=== PATIENT | male | born 1955 | race Caucasian/White ===

== ENCOUNTER → 2021-01-10 08:56 | Outpatient (BNVA) | payer OTHER, SELFPAY | PROVIDERS: Referring Provider Emergency Medicine Emergency Medical Services; Visit Provider Specialist | DX: M79.642 Pain in left hand (principal); M19.042 Primary osteoarthritis, left hand | CPT/HCPCS: 73130 ==

== ENCOUNTER 2021-08-28 14:12 | Outpatient (CLI) | payer OTHER, SELFPAY ==
--- NOTE | 2021-08-28 14:18 | USCV_ITS ---
Rashawn King Age: 66 Gender: M : 1955 Exam Date: 08/28/2021 14:55 Ordering Phys: Joseph Mohr DO Technologist: MACK Exam Location: [facility] [place] Indication: Lightheaded/screening Risk Factors: Previous Vascular Surgery: Right Brachial BP: / Left Brachial BP: / Right Left Velocity (cm/s) Spectral Plaque Velocity (cm/s) Spectral Plaque Syst/Diast Broadening Syst/Diast Broadening 75.00/ 23.20 Prox CCA 70.70 / 21.00 62.90/ 22.50 Mid CCA 70.70 / 20.20 62.10/ 22.50 Distal CCA 70.70 / 22.50 41.60/ 17.70 Prox ICA 56.90 / 18.00 41.20/ 16.70 Mid ICA 41.70 / 15.50 56.20/ 24.30 Distal ICA 43.30 / 19.80 73.20 ECA 77.70 0.89 ICA/CCA 0.80 Antegrade Vertebral Antegrade 26.40/ 8.80 cm/s 36.30/ 13.40 cm/s Tri Subclavian Tri 49.90 59.00 CONCLUSIONS Right ICA stenosis <50%. Moderate calcified atheromatous plaque right carotid bulb/ICA. Left ICA stenosis <50%. Mild atheromatous plaque left carotid bulb/ICA. Normal antegrade Doppler flow noted in the right vertebral artery. Normal antegrade Doppler flow noted in the left vertebral artery. Keenan Christine MD (Electronically Signed) Final Date: 28 Aug 2021 16:22 S
== END 2021-08-28 14:13 | disposition home or self-care (01) ==
LOC: RAD 14:14
PROVIDERS: Visit Provider Emergency Medicine Emergency Medical Services
DX: R42 Dizziness and giddiness (principal); I65.23 Occlusion and stenosis of bilateral carotid arteries
CPT/HCPCS: 93880

== ENCOUNTER 2022-07-22 15:37 | Outpatient (CLI) | payer OTHER, SELFPAY ==
--- NOTE | 2022-07-22 15:50 | CTR_ITS ---
PROCEDURE INFORMATION: Exam: CT Neck With Contrast Exam date and time: 07/22/2022 4:20 PM Age: 66 years old Clinical indication: Mass, lump, or swelling in neck; Right; Patient HX: RT side lump-bb since 1986; Additional info: Localized swelling, mass and lump, neck TECHNIQUE: Imaging protocol: Computed tomography of the neck with contrast. Sagittal and coronal reformatted images were created and reviewed. Radiation optimization: All CT scans at this facility use at least one of these dose optimization techniques: automated exposure control; mA and/or kV adjustment per patient size (includes targeted exams where dose is matched to clinical indication); or iterative reconstruction. Contrast material: OMNNI 350; Contrast volume: 95 ml; Contrast route: INTRAVENOUS (IV); REPORTING DATA: Count of CT and Cardiac NM exams in prior 12 months: This patient has received 0 known CTs and 0 known cardiac nuclear medicine studies in the 12 months prior to the current study. COMPARISON: No relevant prior studies available. RADIATION DOSE METRICS: Total DLP (mGy-cm): 159.75 FINDINGS: Mastoid air cells: Visualized mastoid air cells are clear. Paranasal sinuses: Large mucus retention cyst in the visualized right maxillary sinus. Other visualized paranasal sinuses are clear. Nasal cavity: Moderate right nasal septal deviation. Pharynx: Unremarkable. No significant tonsillar enlargement. Larynx: The larynx is unremarkable. The epiglottis is unremarkable. Prevertebral and retropharyngeal spaces: Unremarkable. Salivary glands: Soft tissue mass with mildly irregular margins in the posterior right parotid gland measuring 2.5 x 1.5 x 1.8 cm (series 13, image 64). There is an indistinct margin between superior portion of the mass and the underlying right sternocleidomastoid muscle (series 7, images 25-34). This corresponds to the clinical finding. The left parotid gland is unremarkable. The right and left submandibular glands are unremarkable. Thyroid: The thyroid gland is unremarkable. Lymph nodes: No lymphadenopathy. Trachea: The trachea is midline and patent. Lungs: Noncalcified nodule in the right upper lobe with an average measurement of 8 mm (series 5, image 92). Visualized lungs are clear. Bones/joints: Multilevel degenerative changes of varying severity in the visualized spine. No lytic or sclerotic bony lesions. Vasculature: Incidental note of a common origin of the left common carotid and brachiocephalic arteries. Mild atherosclerotic changes in the visualized arteries. Cervical vessels are patent. Soft tissues: No loculated fluid collections to suggest an abscess. CT/CT neck w con* [id number] IMPRESSION: 1. Soft tissue mass with mildly irregular margins in the posterior right parotid gland. There is an indistinct margin between superior portion of the mass and the underlying right sternocleidomastoid muscle. This corresponds to the clinical finding. Recommend clinical correlation. 2. Noncalcified nodule in the right upper lobe with an average measurement of 8 mm. For patients at low risk (minimal or absent history of smoking and of other known risk factors), recommend CT Chest at 3-6 months, then consider CT Chest at 18-24 months. For patients at high risk (history of smoking or of other known risk factors), recommend CT Chest at 3-6 months, then CT Chest at 18-24 months. (Reference: Dorothy) 3. Incidental/nonacute findings are listed in the report. REFERENCES: Dorothy H, et al. Guidelines for Management of Incidental Pulmonary Nodules Detected on CT Images: From the Fleischner Society 2017. Radiology. 2017;284(1):228-243.
[2022-07-22 16:18] LABS: Blood Urea Nitrogen 14 mg/dL (8-23)
[2022-07-22] MEDS: iohexol 350 mg/mL 500 mL Btl (per mL) IV (16:24)
== END 2022-07-22 15:38 | disposition home or self-care (01) ==
LOC: RAD 15:40
PROVIDERS: Visit Provider Specialist
DX: R91.1 Solitary pulmonary nodule (principal)
CPT/HCPCS: 70491; 82565; 84520; Q9967

== ENCOUNTER 2022-10-01 14:50 | Inpatient (IN) | payer OTHER, SELFPAY ==
[2022-09-30 11:58] VITALS: BMI 26.6
[2022-10-01] VITALS (31 sets, daily range): BP systolic 120–134; BP diastolic 74–98; PULSE 65–115; RESP 8–24; TEMP 36–36.3; O2SAT 88–100
--- NOTE | 2022-10-01 10:44 | ANES.PREANE2 ---
Pre-Anesthetic Assessment Height/Weight: Height 1.75 m Weight 81.647 kg Temp Pulse Resp BP Pulse Ox O2 Del Method 97.4 F L 70 16 129/98 97 Room Air 10/01/22 10:29 10/01/22 10:29 10/01/22 10:29 10/01/22 10:29 10/01/22 10:29 10/01/22 10:31 Operation Date: 10/01/22 11:50 Proposed Procedures p Right Parotidectomy, poss right neck dessection, Left abdominal fat graft [id number],R22.1(Right) - Noah Pérez MD s Neck Dissection(Right) - Noah Pérez MD s Skin Graft(Left) - Noah Pérez MD Familial anesthetic complications: None Was Beta Aurelio taken within 24 hours: N/A Was Clonidine taken within 24 hours: N/A Last intake: Intake Last Liquid Date 09/30/22 Last Liquid Time 20:00 Last Solid Date 09/30/22 Last Solid Time 20:00 Social No alcohol and No tobacco marijuana use Exam alert, oriented x 3, clear to auscultation bilaterally and regular rate & rhythm Airway Mallampati: Class II Dentition: full History/ROS No significant complaints Anesthetic Plan ASA status: 2 Anesthesia: General Risk of > 500 ml blood loss (7ml/kg in children): No Medications/Allergies Home Medications Medication Instructions Recorded Confirmed Last Taken Type fluoxetine 20 mg capsule (Prozac) 60 mg PO DAILY 01/10/21 09/30/22 09/30/22 History oxybutynin chloride 5 mg tablet 5 mg PO DIRECTED PRN Urinary 10/01/22 10/01/22 09/30/22 History Retention Allergies Allergy/AdvReac Type Severity Reaction Status Date / Time lisinopril Allergy Unknown Verified 09/30/22 11:52 [facility] Anesthesia Social History Smoking and tobacco status: never smoked Data Anesthesia Cardiac Studies: No Data to Display
--- NOTE | 2022-10-01 10:57 | W.PM.OPSUD ---
Surgery/Procedure H&P Update DATE OF PROCEDURE: October 01, 2022 DATE H&P PERFORMED: 09/16/22 PRIMARY INDICATION FOR PROCEDURE: Right parotid mass PLANNED PROCEDURE: Operation Date: 10/01/22 11:50 Proposed Procedures p Right Parotidectomy, poss right neck dessection, Left abdominal fat graft [id number],R22.1(Right) - Noah Pérez MD s Neck Dissection(Right) - Noah Pérez MD s Skin Graft(Left) - Noah Pérez MD
[2022-10-01] MEDS: sodium chloride 0.9% 1,000 ML 30 ML IV (11:10)
[2022-10-01] MEDS: ceFAZolin 2,000 MG in sodium chloride 0.9% (plus) 50 ML 100 MG IV ×2 (11:21→19:22)
[2022-10-01] MEDS: lidocaine-epi 1% 20 mL INJ INJECTION (11:45)
[2022-10-01] MEDS: ceFAZolin 1,000 mg SDV 1000 MG IRRIGATION (12:12)
[2022-10-01] MEDS: EPINEPHrine 1 mg/mL INJ XX ×2 (12:12→13:02)
[2022-10-01] MEDS: fluorescein 1 mg Strip XX (12:12)
[2022-10-01] MEDS: mupirocin oint 22 gm 1 APPLIC TOPICAL (12:35)
[2022-10-01] MEDS: thrombin 5,000 unit SDV 5000 UNIT XX (13:52)
[2022-10-01] MEDS: triamcinolone 40 mg/mL SDV IM (14:36)
--- NOTE | 2022-10-01 14:53 | P.OP_ITS ---
Operative Report Date of procedure: October 01, 2022 Pre-op diagnosis: Right parotid mass Post-op diagnosis: same Post-op findings: - Hard mass in the right tail of parotid, superficial lobe - Right facial nerve intact visually and electrically - O/W normal right parotid/upper neck exam Procedure done: Right superficial parotidectomy Implants: None Specimens removed/disposition: Right tail of parotid mass Pathology: Right tail of parotid mass Surgeon: Noah Pérez Housing Relocation: Jason Hawkins Anesthesia: General Estimated blood loss (mL): 10 IV fluids (mL): 1,300 Urine output (mL): 200 Complications: None Findings: - Hard right tail of parotid superficial lobe mass abutting the sternocleidomastoid and posterior belly of digastric muscle - Right facial nerve intact in all of its branches - O/W normal right parotid mass Condition: stable Disposition: ICU Brief History: 67 yo wm with a h/o a right parotid mass who desires surgical therapy. Procedure: The patient was identified inthe preoperative holding and was taken to the operating where he was placed on the operating table in supine position. Anesthesia was obtained with general endotracheal anesthesia and the table was then turned 180 degrees. The patient's head was turned to the left exposing the right neck to the operating surgeon and a modified [place] incision was drawn out on the patient's right neck and injected local anesthesia. The Nirvana nerve m onitoring system was placed on the patient. The patient was then prepped and draped in usual sterile fashion and the right neck incision was made with a 15 blade. Sharp scissors were then used to elevate in a subcutaneous plane and a anterior based flap was developed over the right parotid down to the external jugular vein. At this point a wide dissection was begun beginning at the sternocleidomastoid extending up into the preauricular area elevating the parotid gland off of its posterior attachments. The right great auricular nerve was identified and a posterior branch was preserved in place. The dissection proceeded into the deep tissues with the deepest point being at the tympanomastoid suture line. The trunk of the facial nerve was identified deep in the tympanomastoid suture line using the Nirvana nerve monitoring hemostat. The dissection then began along the facial nerve elevating the parotid tissue off of the right facial nerve while preserving the nerve in place in all of its branches. There was a hard mass in the right tail of parotid region resting on the sternocleidomastoid and digastric muscles that was rotated anteriorly and off of the facial nerve on the right. As the dissection proceeded anteriorly the branches of the facial nerve were preserved in place and as the right parotid mass was dissected off of the underlying facial nerve - the mass was removed with a cuff of normal-appearing tissue and was sent for frozen section analysis. The frozen section analysis of the right parotid mass was consistent with the low-grade malignancy. Hemostasis was achieved with bipolar cautery. Thrombin-soaked Gelfoam was then placed over the facial nerve and a drain was placed in the wound. The wound was then closed with interrupted 4-0 Monocryl sutures subcu and running 5-0 fast-absorbing gut on the skin. The right face was then cleaned and covered with triple antibiotic ointment. At this point the procedure was terminated and control of the patient was returned to anesthesia where he underwent an uneventful reversal of anesthesia and extubation was taken to the intensive care unit stable condition. There were no operative or anesthetic complications.
[2022-10-01] MEDS: lactated ringers 1,000 ML 125 ML IV ×2 (15:33→22:51)
--- NOTE | 2022-10-01 15:51 | ANE.PACU2 ---
Inpatient post-anesthesia follow up: Airway intact: Yes Vital signs: Temperature 97.4 F Pulse Rate 70 Respiratory Rate 16 Blood Pressure 129/98 Pulse Oximetry 97 Oxygen Delivery Me thod Room Air Oxygen Flow Rate Fraction of Inspir ed Oxygen Hydration adequate: Yes Nausea and vomiting: Yes Pain level: 1 Mental status: Baseline
--- NOTE | 2022-10-01 17:22 | PC.NURSE ---
REceived patient from OR staff at 1348. Patient is alert and oriented to person, place, time, and situation. temp: 97, HR: 95, BP: 129/78. RR: 16. Nurse oruiented patient to room, discussed plan of care, brought patient's vistor Felicita Jones back to room.
--- NOTE | 2022-10-01 17:24 | PC.NURSE ---
patient placed on 2L NC. WHile he sleeps, saturation drop to 87%, while he is awake supplemental oxygen is not required.
--- NOTE | 2022-10-01 17:38 | PC.NURSE ---
SHift SUmmary: Uneventful shift. Patient came form OR at 1348. Has remained alert and oriented. No external bleeding noted from RIght neck incision. No swelling observed. Some drainage into JAYSON drain, but too little to be measured. THroat/lung sounds remain unchanged.
--- NOTE | 2022-10-01 17:45 | PM.PN ---
Subjective Subjective: 67 yo wm who is night of surgery s/p right superficial parotidectomy for a right tail of parotid mass. The patient reports that he is doing well - he is taking po and has minimal pain. Medications: Reviewed: Yes Vitals/I&O/Wt Last Vital Signs Temp 96.8 F L 10/01/22 15:55 Pulse 73 10/01/22 17:20 Resp 11 L 10/01/22 17:20 BP 129/80 10/01/22 17:20 Pulse Ox 97 10/01/22 17:20 O2 Del Method Nasal Cannula 10/01/22 17:05 O2 Flow Rate 2 10/01/22 17:05 10/01/22 10/01/22 10/01/22 06:59 14:59 22:59 Intake Total 1000 / 1000 Output Total 200 / 200 100 / 300 Balance 800 / 800 -100 / 700 Weight last 48 hrs Weight 81.647 kg Physical Exam Const: COMMON NORMALS: no acute distress, average body habitus, patient oriented x3, alert and well nourished HENMT: COMMON NORMALS: normocephalic and atraumatic HEAD & SCALP: normocephalic and atraumatic FACE & SINUS: normal facial exam and other (The right neck wound is intact without swelling. ) Eye: COMMON NORMALS: EOMs intact bilaterally, conjunctivae normal and no scleral icterus CONJUNCTIVA: Yes conjunctivae normal Neck/C-Spine: COMMON NORMALS: no lymphadenopathy Chest: COMMONS NORMALS: normal inspection of the chest Resp: COMMON NORMALS: normal respiratory effort, No retractions, No use of accessory muscles and clear to auscultation bilaterally AUSCULTATION: clear to auscultation bilaterally Cardio: COMMON NORMALS: regular rate, regular rhythm and No murmurs present (Cardio) RATE: regular rate RHYTHM: regular rhythm GI: COMMON NORMALS: Normal to inspection, nondistended, normoactive bowel sounds present Extremity: COMMON NORMALS: normal to inspection Neuro: COMMON NORMALS: patient oriented x3 SENSORIUM/ORIENTATION: Yes alert Urinary Catheter Management: De Guzman: Cath Placed During This Visit: yes Urinary Catheter Date of Insertion: 10/01/22 Urinary Catheter Time of Insertion: 11:35 A&P Assessment and plan (1) Parotid neoplasm: Impression: Right parotid mass doing well s/p right superficial parotidectomy Plan: - Overnight observation in the ICU - Closed suction drainage - Apply CON to the right neck wound TID - Pain control - Anticipate d/c in the am Attestations Medical Necessity Statement*: The patient requires overnight observation of his airway/neck wound Coding Level of Care Code Acute Code for [facility] Fwd Diagnoses 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
[2022-10-01] MEDS: oxybutynin 5 mg Tablet PO ×2 (17:47→22:51)
[2022-10-01] MEDS: HYDROcodone-acetaminophen 5-325 mg Tablet 1 TAB PO (20:17)
[2022-10-01] MEDS: famotidine 20 mg/2 mL INJ IVP (20:17)
[2022-10-02] VITALS: BP 126/78; PULSE 62; RESP 22; TEMP 36.1; O2SAT 93
[2022-10-02 02:00] VITALS: BP 126/78; PULSE 83; RESP 17; O2SAT 91
[2022-10-02] MEDS: ceFAZolin 2,000 MG in sodium chloride 0.9% (plus) 50 ML 100 MG IV (02:55)
--- NOTE | 2022-10-02 05:04 | PM.PN ---
Subjective Subjective: 67 yo wm who is POD #1 s/p right superficial parotidectomy. The patient reports that he is doing well. He has been able to eat well, and has minimal pain. He is o/w without c/o. Medications: Reviewed: Yes Vitals/I&O/Wt Last Vital Signs Temp 97.0 F L 10/02/22 00:00 Pulse 83 10/02/22 02:00 Resp 17 10/02/22 02:00 BP 126/78 10/02/22 02:00 Pulse Ox 91 10/02/22 02:00 O2 Del Method Room Air 10/02/22 02:00 O2 Flow Rate 2 10/01/22 17:05 10/01/22 10/01/22 10/02/22 14:59 22:59 06:59 Intake Total 1050 / 1050 1162.5 / 2212.5 Output Total 200 / 200 1000 / 1200 Balance 850 / 850 162.5 / 1012.5 Weight last 48 hrs Weight 81.647 kg Physical Exam Const: COMMON NORMALS: no acute distress, average body habitus, patient oriented x3, healthy appearing and alert HENMT: COMMON NORMALS: normocephalic, atraumatic and Normal external nose present HEAD & SCALP: normocephalic and atraumatic FACE & SINUS: normal facial exam and other (Right facial wound intact, pink, without swelling. ) NOSE: Normal external nose present Eye: COMMON NORMALS: EOMs intact bilaterally Neck/C-Spine: COMMON NORMALS: full ROM, no lymphadenopathy and supple Chest: COMMONS NORMALS: normal inspection of the chest Resp: COMMON NORMALS: normal respiratory effort, No retractions, No use of accessory muscles and clear to auscultation bilaterally AUSCULTATION: clear to auscultation bilaterally Cardio: COMMON NORMALS: regular rate, regular rhythm and No murmurs present (Cardio) RATE: regular rate RHYTHM: regular rhythm GI: COMMON NORMALS: Normal to inspection, nondistended, normoactive bowel sounds present Extremity: COMMON NORMALS: normal to inspection Neuro: COMMON NORMALS: patient oriented x3 and CN's II-XII intact bilaterally SENSORIUM/ORIENTATION: Yes alert Urinary Catheter Management: De Guzman: Cath Placed During This Visit: yes Urinary Catheter Date of Insertion: 10/01/22 Urinary Catheter Time of Insertion: 11:35 A&P Assessment and plan (1) Parotid neoplasm: Impression: POD #1 s/p right superficial parotidectomy doing well Plan: - [place] () tabs: take 1-2 tabs po Q5 hours prn pain, #25, NR - Apply CON to the right neck wound TID - Keep wound dry for an additional 24 hours - F/U in Dr. Pérez's office on 10/04/22 @ 13:00 hours - Notify Dr. Pérez for any problems - Resume all preop medications - Regular diet Attestations Medical Necessity Statement*: The patient required overnight observation of his airway and neck wound. 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
[2022-10-02 05:44] VITALS: BP 126/78; PULSE 68; RESP 12; TEMP 36.1; O2SAT 98
[2022-10-02 05:56] VITALS: PULSE 57
--- NOTE | 2022-10-02 06:19 | PC.NURSE ---
Discharge instructions given to patient and educated. PIV removed. Patient dressed in clothes. Awaiting significant other for ride home.
--- NOTE | 2022-10-02 06:38 | PC.NURSE ---
discharged home with family
== END 2022-10-02 06:24 | disposition home or self-care (01) | DRG 139 ==
LOC: ICU 15:12
PROVIDERS: Admitting Provider Specialist; Visit Provider Specialist
PROC: 0CB80ZZ Excision of Right Parotid Gland, Open Approach (ICD-10-PCS; 2022-10-01 11:40)
PROC: 0CB80ZZ Excision of Right Parotid Gland, Open Approach (ICD-10-PCS; CPT 42410; 2022-10-01 11:40)
DX: C07 Malignant neoplasm of parotid gland (principal); F12.90 Cannabis use, unspecified, uncomplicated
CPT/HCPCS: 12345; 51702; 88307; 88331; J0171; J0330; J0690; J1100; J1170; J2704; J3010; J3301; J3490; J7030; J7120

== ENCOUNTER 2022-11-25 14:31 | Oncology outpatient (recurring) (ONCR) | payer OTHER, SELFPAY ==
--- NOTE | 2022-11-25 15:02 | N.ONRAD NP_ITS ---
Radiation Oncology Consultation Patient Name: Rashawn King Date of : 1955 Date of Service: 11/25/2022 Attending Physician: Lazaro Stanley M.D. Rashawn King was seen in consultation this afternoon at the request of Noah Pérez M.D. for evaluation regarding adjuvant head and neck radiotherapy in the management of a recently diagnosed parotid cancer. He was evaluated by Noah Pérez M.D. for a right parotid mass. A CT of the neck (independently reviewed in [facility]) ordered on July 23, 2022 described a 2.5 cm x 1.5 cm x 1.8 cm soft tissue mass within the posterior aspect of the right parotid gland. A right superficial parotidectomy was performed October 01, 2022. 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 He is aware that early non-invasive tumors that have not violated the capsule of the adenoma have an excellent prognosis and that such malignant change is discovered incidentally upon microscopic examination of the lesion. However, in consideration of the rarity of the tumor, I will refer the patient to [facility] for treatment recommendations. The patient's medical treatment plan was discussed with Noah Pérez M.D. Signed by: Dr. Lazaro Stanley 11/25/2022 3:01:56 PM
== END 2022-11-25 23:59 | disposition home or self-care (01) ==
LOC: ONCMED 14:32
PROVIDERS: Visit Provider Radiology Radiation Oncology
DX: C07 Malignant neoplasm of parotid gland (principal)
CPT/HCPCS: 99204

== ENCOUNTER 2024-10-21 07:04 | Outpatient (CLI) | payer OTHER, SELFPAY ==
--- NOTE | 2024-10-21 07:10 | MR_ITS ---
WS: [id number] MRI HEAD WITH CONTRAST TECHNIQUE: Sagittal T1, T2 axial, T2 axial FLAIR, axial susceptibility weighted imaging, axial diffusion weighted images, and coronal T2 images were obtained. Pre and post-T1 axial and post T1 coronal images. ADC and FSPGR images. CLINICAL INFORMATION: RESTING TREMOR COMPARISON: None. FINDINGS: No evidence of restricted diffusion to suggest acute ischemia. Mild small vessel changes. Moderate parenchymal volume loss. Normal posterior fossa. Normal vascular flow voids at the skull base. No extra-axial fluid collections. No evidence of mass or mass effect. Paranasal sinuses and mastoid air cells are well aerated. Normal optic chiasm and pituitary infundibulum. Mild symmetric atrophy temporal lobes and hippocampal formations. No abnormal gadolinium enhancement. Normal dural venous sinuses. MR/MR head wo/w con [id number] IMPRESSION: 1. No evidence of restricted diffusion to suggest acute ischemia. 2. Mild small vessel changes. Moderate parenchymal volume loss. 3. No hemosiderin on the susceptibility weighted images. 4. No other acute findings.
[2024-10-21] MEDS: gadobenate dimeglumine 20 mL vial 18 ML IV (07:46)
== END 2024-10-21 07:05 | disposition home or self-care (01) ==
PROVIDERS: PCP Family Medicine; Visit Provider Family Medicine
DX: G25.2 Other specified forms of tremor (principal); R93.0 Abnormal findings on diagnostic imaging of skull and head, not elsewhere classified; G31.89 Other specified degenerative diseases of nervous system
CPT/HCPCS: 70553; A9577